=== PATIENT | male | born 1980 | race American Indian/Alaskan Native ===

== ENCOUNTER 2016-07-03 09:08 | Emergency (ER) | payer OTHER ==
[2016-07-03 09:20] VITALS: BP 139/98
--- NOTE | 2016-07-03 09:56 | Emergency Department Report ---
ED ENT HPI - General Chief complaint: Dental/Oral Stated complaint: TOOTHACHE Time Seen by Provider: 07/03/16 09:53 Source: patient Mode of arrival: Ambulatory Limitations: No Limitations - History of Present Illness MD complaint: tooth pain Severity scale (0 -10): 7 Quality: aching Consistency: constant Worsens with: eating Associated Symptoms: toothache. denies: fever - Related Data Previous Rx's Medication Instructions Recorded Last Taken Type Amoxicillin [Amoxicillin TAB] 875 mg PO BID #20 tablet 07/03/16 Unknown Rx Diclofenac Potassium 50 mg PO BID #20 tablet 07/03/16 Unknown Rx Allergies Allergy/AdvReac Type Severity Reaction Status Date / Time acetaminophen [From Percocet] Allergy Hives Verified 07/03/16 09:21 oxycodone HCl [From Percocet] Allergy Hives Verified 07/03/16 09:21 ED Dental HPI - General Chief complaint: Dental/Oral Stated complaint: TOOTHACHE Time Seen by Provider: 07/03/16 09:53 Source: patient Mode of arrival: Ambulatory Limitations: No Limitations - History of Present Illness MD complaint: tooth pain Worsens with: hot/cold liquids Context- Dental: history of dental caries, poor dental care - Related Data Previous Rx's Medication Instructions Recorded Last Taken Type Amoxicillin [Amoxicillin TAB] 875 mg PO BID #20 tablet 07/03/16 Unknown Rx Diclofenac Potassium 50 mg PO BID #20 tablet 07/03/16 Unknown Rx Allergies Allergy/AdvReac Type Severity Reaction Status Date / Time acetaminophen [From Percocet] Allergy Hives Verified 07/03/16 09:21 oxycodone HCl [From Percocet] Allergy Hives Verified 07/03/16 09:21 ED Review of Systems ROS: Stated complaint: TOOTHACHE Other details as noted in HPI Constitutional: denies: chills, fever Eyes: denies: eye pain, eye discharge, vision change ENT: denies: ear pain, throat pain Respiratory: denies: cough, shortness of breath, wheezing Gastrointestinal: denies: abdominal pain, nausea, diarrhea Musculoskeletal: denies: back pain, joint swelling, arthralgia Skin: denies: rash, lesions Neurological: denies: headache, weakness, paresthesias ED Past Medical Hx - Past Medical History Previous Medical History?: No - Surgical History Past Surgical History?: No - Social History Smoking Status: Current Every Day Smoker Substance Use Type: Alcohol - Medications Home Medications: Home Medications Medication Instructions Recorded Confirmed Last Taken Type Amoxicillin [Amoxicillin TAB] 875 mg PO BID #20 tablet 07/03/16 Unknown Rx Diclofenac Potassium 50 mg PO BID #20 tablet 07/03/16 Unknown Rx ED Physical Exam - General Limitations: No Limitations General appearance: alert, in no apparent distress - Head Head exam: Present: atraumatic, normocephalic - Eye Eye exam: Present: normal appearance - ENT ENT exam: Present: mucous membranes moist, other (dental fracture and decay, left upper second molar. No trismus, no adenopathy.) - Neck Neck exam: Present: normal inspection. Absent: tenderness, meningismus - Respiratory Respiratory exam: Present: normal lung sounds bilaterally. Absent: respiratory distress, wheezes, rales, rhonchi, stridor - Cardiovascular Cardiovascular Exam: Present: regular rate - Back Exam Back exam: Present: normal inspection - Neurological Exam Neurological exam: Present: alert, oriented X3 ED Course Vital Signs 07/03/16 09:17 Temperature 98.4 F Pulse Rate 92 H Respiratory 17 Rate Blood Pressure 139/98 O2 Sat by Pulse 100 Oximetry Critical care attestation.: If time is entered above; I have spent that time in minutes in the direct care of this critically ill patient, excluding procedure time. ED Disposition Clinical Impression: Tooth ache Disposition: DISCHARGED TO HOME OR SELFCARE Is pt being admited?: No Condition: Stable Instructions: Toothache (ED) Prescriptions: Amoxicillin [Amoxicillin TAB] 875 mg PO BID #20 tablet Diclofenac Potassium 50 mg PO BID #20 tablet Referrals: PRIMARY CARE, [Primary Care Provider] - 3-5 Days Forms: Work/School Release Form(ED) Time of Disposition: 10:31
== END 2016-07-03 10:42 | disposition home or self-care (01) ==
LOC: ED 09:08
DX: K08.89 Other specified disorders of teeth and supporting structures (principal); Z88.8 Allergy status to other drugs, medicaments and biological substances; F17.200 Nicotine dependence, unspecified, uncomplicated
CPT/HCPCS: 99282

== ENCOUNTER 2018-02-07 09:14 | Emergency (ER) | payer OTHER ==
[2018-02-07 10:04] VITALS: BP 113/75
--- NOTE | 2018-02-07 10:16 | Emergency Department Report ---
Chief Complaint: Extremity Problem,Nontraumatic Stated Complaint: RIGHT HAND PAIN Time Seen by Provider: 02/07/18 10:08 - HPI History of Present Illness: 37-year-old male presents to the emergency department with complaint of some right hand pain and swelling and difficulty straightening out the pinky finger has been going on since he accidentally hit his hand against a wall about 1.5 weeks ago. He says that something pushed him forward and his fist went towards a wall but he did not intentionally punched anything. It hasn 't been too painful until last night but he has had the swelling towards the base of the pinky. He is right-hand dominant. - ROS Review of Systems: Positive for right hand pain and swelling Negative for erythema or skin color change, numbness - Exam Vital Signs: Vital Signs 02/07/18 09:58 Temperature 98.1 F Pulse Rate 90 Respiratory 18 Rate Blood Pressure 113/75 O2 Sat by Pulse 100 Oximetry Physical Exam: Radial pulse +2 over 4 and capillary refill less than 2 seconds to the affected right hand and wrist. There is some firm swelling to the ulnar side of the dorsal hand towards the base of the pinky. The patient is unable to fully extend the pinkie and there appears to be some slight deformity when making a fist. MSE screening note: Focused history and physical exam performed. Due to findings the following was ordered: X-ray of the right hand has been ordered. ED Disposition for MSE Condition: Stable
--- NOTE | 2018-02-07 10:28 | XRay Report ---
RIGHT HAND, 3 views: History: Swelling to right hand. A comminuted fracture is identified at the fifth metacarpal neck. Anterior angulation of the fracture site measures 30 degrees. The remaining bony structures and joint spaces are unremarkable. Mild soft tissue swelling is noted on the dorsum of the hand. IMPRESSION: Boxer's fracture.
--- NOTE | 2018-02-07 10:31 | Emergency Department Report ---
HPI - General Chief Complaint: Extremity Problem,Nontraumatic Time Seen by Provider: 02/07/18 10:08 - HPI HPI: 37-year-old male presents to the emergency department with complaint of some right hand pain and swelling and difficulty straightening out the pinky finger has been going on since he accidentally hit his hand against a wall about 1.5 weeks ago. He says that something pushed him forward and his fist went into a wall but he did not intentionally punched anything. The pain has been intermittent but worsens when he is trying to make a fist or using his right hand to write something. He is right-hand dominant. ED Past Medical Hx - Past Medical History Previous Medical History?: No - Surgical History Past Surgical History?: No - Social History Smoking Status: Current Every Day Smoker Substance Use Type: Alcohol, Marijuana - Medications Home Medications: Home Medications Medication Instructions Recorded Confirmed Last Taken Type Amoxicillin [Amoxicillin TAB] 875 mg PO BID #20 tablet 07/03/16 Unknown Rx Diclofenac Potassium 50 mg PO BID #20 tablet 07/03/16 Unknown Rx traMADol [Ultram 50 MG tab] 50 mg PO Q6HR PRN #10 tablet 02/07/18 Unknown Rx ED Review of Systems ROS: Stated complaint: RIGHT HAND PAIN Other details as noted in HPI Comment: All other systems reviewed and negative Constitutional: denies: chills, fever Eyes: denies: eye pain, eye discharge, vision change ENT: denies: ear pain, throat pain Respiratory: denies: cough, shortness of breath, wheezing Cardiovascular: denies: chest pain, palpitations Gastrointestinal: denies: abdominal pain, nausea, diarrhea Genitourinary: denies: urgency, dysuria Musculoskeletal: arthralgia. denies: back pain Skin: denies: rash, lesions Neurological: denies: headache, weakness, paresthesias Physical Exam - Physical Exam Vital Signs: Vital Signs 02/07/18 09:58 Temperature 98.1 F Pulse Rate 90 Respiratory 18 Rate Blood Pressure 113/75 O2 Sat by Pulse 100 Oximetry Physical Exam: GENERAL: patient is well-developed well-nourished. HENT: Normocephalic. Atraumatic. Patient has moist mucous membranes. EYES: Extraocular motions are intact. NECK: Supple. Trachea is midline. CHEST/LUNGS: Clear to auscultation. There is no respiratory distress noted. HEART/CARDIOVASCULAR: Regular. There is no tachycardia. There is no murmur. ABDOMEN: There is no abdominal distention. SKIN: There is some firm swelling to the distal dorsal right hand at the base of the pinky. No erythema, warmth or fluctuance. NEURO: The patient is awake, alert, and oriented. The patient is cooperative. The patient has no focal neurologic deficits. The patient has normal speech. MUSCULOSKELETAL: Mild tenderness to palpation to the distal dorsal right hand where the patient has some swelling. He cannot fully extend the right pinky finger. There seems to be some type of deformity of the proximal pinky finger with closing his right fist. Radial pulse +2 over 4 and capillary refill less than 2 seconds to the affected right hand and wrist. ED Course Vital Signs 02/07/18 09:58 Temperature 98.1 F Pulse Rate 90 Respiratory 18 Rate Blood Pressure 113/75 O2 Sat by Pulse 100 Oximetry ED Medical Decision Making - Radiology Data Radiology results: image reviewed interpreted by me: X-ray of the right hand shows a distal fracture of the right metacarpal with some palmar angulation and displacement consistent with a boxer's fracture. - Medical Decision Making Patient appears to have a boxer's fracture of the right metacarpal. It is about 1.5 up until 2 weeks since this incident occurred. Patient was placed in a ulnar gutter splint that included hand and pinky finger. He will be given a referral for orthopedic groups. He's been instructed to stay in the splint until follow-up. He will return with any worsening of symptoms or any acute distress. - Differential Diagnosis fracture, dislocation, contusion, sprain Critical Care Time: No Critical care attestation.: If time is entered above; I have spent that time in minutes in the direct care of this critically ill patient, excluding procedure time. ED Disposition Clinical Impression: Boxers fracture Qualifiers: Encounter type: initial encounter Fracture type: closed Qualified Code(s): S62.339A - Displaced fracture of neck of unspecified metacarpal bone, initial encounter for closed fracture Disposition: - TO HOME OR SELFCARE Is pt being admited?: No Condition: Stable Instructions: Boxer Fracture (ED) Additional Instructions: Please follow up with an orthopedist in the next few days. I would suggest remaining in the splint until follow-up with the orthopedist. Return to the emergency Department with any worsening of your symptoms or any acute distress. You have been prescribed a medication that is sedating and therefore should not be taken prior to driving, working, and responsible for children and in no way should be mixed with alcohol of any quantity. Prescriptions: traMADol [Ultram 50 MG tab] 50 mg PO Q6HR PRN #10 tablet PRN Reason: Pain Referrals: LIGIA HOOD MD [Staff Physician] - 2-3 Days [facility] [Provider Group] - 2-3 Days Time of Disposition: 10:35
== END 2018-02-07 10:57 | disposition home or self-care (01) ==
LOC: ED 09:14
DX: S62.336A Displaced fracture of neck of fifth metacarpal bone, right hand, initial encounter for closed fracture (principal); F17.200 Nicotine dependence, unspecified, uncomplicated; F12.10 Cannabis abuse, uncomplicated; Z88.6 Allergy status to analgesic agent; Z88.5 Allergy status to narcotic agent; W22.01XA Walked into wall, initial encounter; Y93.89 Activity, other specified; Y92.89 Other specified places as the place of occurrence of the external cause; Y99.8 Other external cause status
CPT/HCPCS: 99284

== ENCOUNTER 2018-12-05 11:45 | Emergency (ER) | payer SELFPAY ==
[2018-12-05 11:54] VITALS: BP 116/81
--- NOTE | 2018-12-05 11:54 | Event Note ---
ED Screening Note ED Screening Note: states has had it reoccuring for a year abscess to the left face states it has been draining states it has been there since april states it has been increasing in size since yesterday no drainage no fever PMHx none allergy to percocet +tobacco +marijuana +ETOH no other drug use This initial assessment/diagnostic orders/clinical plan/treatment(s) is/are subject to change based on patients health status, clinical progression and re- assessment by fellow clinical providers in the ED. Further treatment and workup at subsequent clinical providers discretion. Patient/guardian urged not to elope from the ED as their condition may be serious if not clinically assessed and managed.
--- NOTE | 2018-12-05 12:14 | Emergency Department Report ---
HPI - General Chief Complaint: Skin/Abscess/Foreign Body Time Seen by Provider: 12/05/18 11:52 - HPI HPI: 38-year-old -[place] male presents to the emergency department with a complaint of a bump to the left upper cheek that has been going on for the past year. He says that he usually he will "bust it" and then it goes down or goes away but it tends to come back. This morning it seemed like it had grown in size and became painful. He tried to squeeze it and open it without any improvement. In the past, the patient says that when he squeezed it some white substance come out. He denies any fever. Does not have a primary care physician. He denies any past medical history. ED Past Medical Hx - Past Medical History Previous Medical History?: No - Surgical History Past Surgical History?: No - Social History Smoking Status: Current Every Day Smoker Substance Use Type: Alcohol, Marijuana - Medications Home Medications: Home Medications Medication Instructions Recorded Confirmed Last Taken Type Amoxicillin [Amoxicillin TAB] 875 mg PO BID #20 tablet 07/03/16 Unknown Rx Diclofenac Potassium 50 mg PO BID #20 tablet 07/03/16 Unknown Rx traMADol [Ultram 50 MG tab] 50 mg PO Q6HR PRN #10 tablet 02/07/18 Unknown Rx Sulfamethoxazole/Trimethoprim 1 each PO BID #10 tablet 12/05/18 Unknown Rx [Bactrim DS TAB] ED Review of Systems ROS: Stated complaint: POSS ABCESS Other details as noted in HPI Comment: All other systems reviewed and negative Constitutional: denies: chills, fever Skin: lesions. denies: change in color Neurological: denies: headache, numbness Physical Exam - Physical Exam Vital Signs: Vital Signs 12/05/18 11:53 Temperature 97.5 F L Pulse Rate 100 H Respiratory 18 Rate Blood Pressure 116/81 O2 Sat by Pulse 96 Oximetry Physical Exam: GENERAL: The patient is well-developed well-nourished. HENT: Normocephalic. Atraumatic. Patient has moist mucous membranes. EYES: Extraocular motions are intact. NECK: Supple. Trachea is midline. CHEST/LUNGS: Clear to auscultation. There is no respiratory distress noted. HEART/CARDIOVASCULAR: Regular. There is no tachycardia. There is no murmur. ABDOMEN: There is no abdominal distention. SKIN: There is a grape-sized, slightly tender, mobile lesion to the left upper cheek, just down and over from the left eye. No surrounding erythema. No current bleeding, weeping or drainage. NEURO: The patient is awake, alert, and oriented. The patient is cooperative. The patient has no focal neurologic deficits. The patient has normal speech. MUSCULOSKELETAL: There is no tenderness or deformity. There is no evidence of acute injury. ED Course Vital Signs 12/05/18 11:53 Temperature 97.5 F L Pulse Rate 100 H Respiratory 18 Rate Blood Pressure 116/81 O2 Sat by Pulse 96 Oximetry - Reevaluation(s) Reevaluation #1: 12/05/18 12:32 I was being shadowed by a high school student named Yaya, brought down the ED by Dr Mena. The patient gave verbal permission for the student to observe this procedure. This was witnessed by nurse Wicho, whom was also bedside. - I & D Left Cheek Type of Procedure: Simple Site: left upper cheek just down and over from the left eye Blade Size: 11 I & D Procedure: betadine prep, sterile drapes applied, sterile dressing applied Progress: About one mL of 1% lidocaine without epinephrine was placed inside of the cyst or abscess. Prior to this, the area was cleaned with Betadine solution. A 0.5 cm incision was made in the middle of the lesion. About 1 mL of malodorous purulent drainage was removed and the area was manually pressed to try and express all purulence and break up any possible loculations. Patient tolerated procedure well without any obvious complications. ED Medical Decision Making - Medical Decision Making This patient presents with acute on chronic growth or lesion to the left upper cheek. It is slightly tender but mobile. It appears most consistent with either an abscess or a cyst. However the patient says that he is has opened the area in the past and expressed what sounds like purulent drainage. An incision and drainage was done that removed about 1 mL of malodorous purulent drainage. Some of it was caseous. Differential includes an abscess versus a caseous cyst. Patient will be placed on a very short course of antibiotics. He has been given referrals for primary care and dermatology. He will return to the ER with any worsening of his symptoms or any acute distress. Vital signs stable throughout his ED course included being afebrile. - Differential Diagnosis abscess, caseous cyst, dermatitis Critical Care Time: No Critical care attestation.: If time is entered above; I have spent that time in minutes in the direct care of this critically ill patient, excluding procedure time. ED Disposition Clinical Impression: Facial abscess Disposition: DC- TO HOME OR SELFCARE Is pt being admited?: No Condition: Stable Instructions: Abscess Incision and Drainage (ED), Abscess (ED) Additional Instructions: Please follow up with a primary care physician in the next few days. I am also giving you a referral for a local oncologist, Dr. li, to follow up regarding your abscess or infected cyst. Take the antibiotics as prescribed. Return to the emergency Department with any worsening of your symptoms or any acute distress. Prescriptions: Sulfamethoxazole/Trimethoprim [Bactrim DS TAB] 1 each PO BID #10 tablet Referrals: BETY LI MD [Staff Physician] - 3-5 Days [facility] [Outside] - 3-5 Days Time of Disposition: 12:33
[2018-12-05] MEDS ORDERED: XYLOCAINE 1% 20 mL ONE (12:23)
== END 2018-12-05 13:03 | disposition home or self-care (01) ==
LOC: ED 11:45
DX: L02.01 Cutaneous abscess of face (principal); F17.200 Nicotine dependence, unspecified, uncomplicated; F12.10 Cannabis abuse, uncomplicated; Z88.6 Allergy status to analgesic agent; Z88.5 Allergy status to narcotic agent